=== PATIENT | female | born 1965 | race Caucasian/White ===

== ENCOUNTER 2023-07-17 17:47 | Emergency (ER) | payer MEDICARE, MEDICAID, SELFPAY ==
[2023-07-17 17:48] VITALS: BP 124/86; PULSE 97; RESP 10; TEMP 36.6; O2SAT 97
--- NOTE | 2023-07-17 17:55 | CT_ITS ---
STUDY: CT BRAIN WITHOUT CONTRAST REASON FOR EXAM: Female, 58 years old. Suspect intracranial bleed, on Coumadin RADIATION DOSAGE (If Supplied By Facility): CTDIvol = ( 44.99 ) mGy, DLP = ( 796.11 ) mGycm TECHNIQUE: Transaxial CT imaging of the brain was performed without administration of intravenous contrast material. Individualized dose optimization techniques were used for this CT. COMPARISON: No relevant priors. FINDINGS: Normal soft tissue structures. Normal calvarium. Slightly prominent ventricles and extra-axial spaces with mild atrophy. Mild white matter microangiopathic ischemic changes of the cerebral hemispheres. Normal basal ganglia and thalami. Normal brainstem. Normal cerebellum. There is no intracranial hemorrhage. There are no findings of an acute ischemic infarction. Normal visualized paranasal sinuses. CT/Brain/Head without Contrast IMPRESSION: Age-related changes of the brain. Electronically Signed: Devang Lozada DO at 18:36 EST Reading Location ID and State: [facility] / [place] Tel [phone], Service support ,
[2023-07-17 18:21] LABS: International Normalized Ratio 0.9; Prothrombin Time (Protime)PT. 12.4 SECONDS (11.7-14.9)
--- NOTE | 2023-07-17 18:25 | RAD_ITS ---
INDICATION: Injury/Pain EXAMINATION/TECHNIQUE: X-RAY - XR Hip Unilateral with Pelvis when performed; 2-3 Views COMPARISON: FINDINGS: PELVIC BONES: No displaced fracture, destructive or sclerotic lesions. Note that overlapping bowel shadows may however obscure fine detail. Sacroiliac joints are unremarkable. No widening of the pubic symphysis. HIPS: The articular structures are unremarkable. No displaced fracture seen in this frontal view. SOFT TISSUES: No soft tissue swelling or gas. RAD/HIP, UNI W/ Pelvis 2-3 Views IMPRESSION: No evidence of displaced pelvic or hip fracture. Electronically Signed: Devang Lozada DO at 18:40 EST Reading Location ID and State: [facility] / [place] Tel [phone], Service support ,
[2023-07-17] MEDS: Diphth,Pertuss(Acell),Tet Vac 0.5 ML Vial IM (18:34)
[2023-07-17] MEDS: Lidocaine 1% (20 ml mdv) 20 ML Vial INFILT (18:34)
--- NOTE | 2023-07-17 18:54 | EDS_ITS ---
HPI History of Present Illness Chief Complaint: Fall Detail of Chief Complaint: Scalp wound and left hip pain Informant: patient and spouse/S.O. Onset/Context/Timing Onset: Today and Hours Mechanism/Context: Blunt Injury Location: Left hip and occiput Current Severity: Mild Maximum Severity: Moderate Worsened by: Movement of left lower extremity Relieved by: Remaining still Associated Symptoms Associated Symptoms: Positive for Loss of consciousness; Negative for Parasthesias, Weakness, Loss of function or Amnesia Length of loss of consciousness: Transient Narrative Narrative: Patient is a 58-year-old woman with metastatic squamous cell carcinoma of the lung who presents after fall from wheelchair. She is on anticoagulant. Her port has not been accessed in 4 months. She does report transient loss of conscious. She does report head pain. She denies double vision, blurred vision loss of vision. She denies neck pain. She denies paresthesia, anesthesia or we akness in her upper or lower extremity. She denies chest pain, dyspnea, dyspnea on exertion. She denies cough. She does endorse nausea without vomiting or diarrhea. She denies dysuria, frequency, urgency or hematuria. She localizes her left hip pain to the greater trochanteric region. She denies prior injury to that hip. Tetanus Immunization: Unknown Prior similar symptoms: No Recent Illness/Hospitalization: Yes PFSH PFSH Allergy/AdvReac Type Severity Reaction Status Date / Time loratadine [From Claritin] Allergy Intermediate Other Verified 07/17/23 17:55 Social History (Updated 07/17/23 @ 18:[address] Shabbir Dc MD) household members: family Smoking Status: Former smoker substance use type: does not use ROS ROS ED Constitutional Constitutional ED: Reports weight loss; Denies chills, fever(s), subjective or sweats Eyes Eyes: Denies blurry vision or change in vision ENT ENT ED: Denies ear pain, rhinorrhea or sore throat Cardiovascular Cardiovascular: Denies chest pain, palpitations or paroxysmal nocturnal dyspnea Respiratory/Chest Respiratory/Chest: Denies cough, dyspnea, dyspnea on exertion or paroxysmal nocturnal dyspnea Gastrointestinal Gastrointestinal: Reports nausea; Denies abdominal pain, diarrhea, melena or vomiting Genitourinary Genitourinary ED: Denies dysuria, hematuria or urinary frequency Musculoskeletal Musculoskeletal: Reports other Details: Left hip pain. ; Denies arthralgias, back pain, myalgias or neck pain Integumentary Reports other Details: Scalp laceration occiput with active bleeding Neurologic Neurologic: Reports headache(s) and weakness; Denies paresthesias Psychiatric Psychiatric: Denies anxiety Hematologic/Lymphatic Hematologic/Lymphatic: Reports easy bleeding and easy bruising EXAM Physical Exam Const Vital Signs: 07/17/23 17:48 07/17/23 17:51 Temperature 98 F Temperature Source Temporal Pulse Rate 97 Respiratory Rate 10 L Respiratory Effort Non-Labored Respiratory Depth Normal Respiratory Pattern Normal Blood Pressure 124/86 H Blood Pressure Mean 98 Pulse Ox 97 Oxygen Delivery Method Room Air Room Air Positive well nourished and well developed General Appearance ED: well developed and NAD HEENT HEENT Narrative: There is no occiput hematoma with laceration noted. There is bleeding. There is no palpable depression. There is no clinical findings of basilar skull fracture. trauma and tenderness Eyes PERRL and EOMs intact bilaterally General Eye ED: Yes other Other Details: Sclera is anicteric. Conjunctive is pink. Neck Neck Narrative: There is no midline posterior tenderness. Chest Wall inspection of chest normal and palpation of chest normal Chest Narrative: Port noted right subclavian region. Resp normal respiratory effort and clear to auscultation bilaterally Cardio regular rhythm, S1 normal heart sound, S2 normal heart sound and no murmurs GI normal to inspection, nondistended, normoactive bowel sounds, non-tender, non-distended and no masses Auscultation: normoactive bowel sounds Palpation: soft Back/Spine normal to inspection and no thoracic nor lumbar tenderness Extremity Extremity Narrative: Limited range of motion left lower extremity due to hip pain. Patient is wheelchair-bound. There is tenderness over the greater trochanteric region. General Extremety ED: Yes tenderness; Negative for deformity or edema General Extremity: Negative for deformity or edema Neuro oriented x3, CN's II-XII intact bilaterally, moves all extremities, no focal motor deficits, no sensory deficits noted and No gait normal Bob Coma Scale: document GCS findings Spontaneous Obeys Commands Oriented 15 Sensorium / Orientation: alert Plantar Reflex: Downgoing: bilateral Psych mental status grossly normal and thought process normal Skin no rashes or lesions noted, No no wounds, skin turgor normal and no jaundice Skin Narrative: Scalp laceration with active bleeding 5 mm Wounds: wounds noted PROC Procedures Other Procedures Procedure(s): Patient's wound was cleansed. Wound was not sized wound site lidocaine by local filtration. 1 staple was placed. Bleeding was controlled. MDM MDM MDM Narrative Medical decision making narrative: Per the [place] CT head rule and [place] rule patient needs imaging of her head to rule out subdural, epidural, intraparenchymal bleed. Unlikely traumatic subarachnoid hemorrhage. PT/INR was obtained. Because patient's been bleeding for an hour to will place staple and wound. Tetanus was updated. Patient does have a living will. She states her daughter is her POA. Lab Data Attestation: I reviewed the patient's lab results. Lab results narrative: Patient is subtherapeutic. Labs: Laboratory Results - last 24 hr 07/17/23 18:05 PT 12.4 INR 0.9 Radiography Chest X-Ray - ED: Read by ED Physician (3 view x-ray of the hip reveals no acute process. There is no fracture, dislocation or subluxation. There is no fr acture of the femur or the pelvis.) Diagnostic Testing: Clinical Impression(s) from Imaging Studies Brain CT 07/17/23 17:55 IMPRESSION: Age-related changes of the brain. Electronically Signed: Devang Lozada DO at 18:36 EST , Hip/Pelvis X-Ray 07/17/23 18:25 IMPRESSION: No evidence of displaced pelvic or hip fracture. 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
[2023-07-17 19:00] VITALS: BMI 27.4
[2023-07-17] MEDS: Acetaminophen 325 MG Tablet 650 MG PO (19:36)
[2023-07-17 19:41] VITALS: BP 135/80; PULSE 95; RESP 20; O2SAT 97
== END 2023-07-17 19:46 | disposition home or self-care (01) ==
PROVIDERS: Emergency Provider Emergency Medicine; Visit Provider Emergency Medicine
DX: S01.01XA Laceration without foreign body of scalp, initial encounter (principal); C79.31 Secondary malignant neoplasm of brain; C78.00 Secondary malignant neoplasm of unspecified lung; S06.9X9A Unspecified intracranial injury with loss of consciousness of unspecified duration, initial encounter; S70.02XA Contusion of left hip, initial encounter; M25.552 Pain in left hip; Z87.891 Personal history of nicotine dependence; Z79.01 Long term (current) use of anticoagulants; R51.9 Headache, unspecified; W05.0XXA Fall from non-moving wheelchair, initial encounter; Z99.3 Dependence on wheelchair; Z23 Encounter for immunization
CPT/HCPCS: 12001; 70450; 73502; 85610; 90471; 90715; 99283; A4216

== ENCOUNTER → 2023-10-25 | Outpatient (REF) | payer MEDICARE, SELFPAY ==
[2023-10-25 09:57] LABS: Valproic Acid (Depakene) Level 53 ug/mL (50-100)
[2023-10-29 05:07] LABS: KEPPRA (LEVETIRACETAM) 53.6 ug/mL (10.0-40.0)
== END ==
LOC: OLS.ACW400 05:00
PROVIDERS: Visit Provider Family Medicine
DX: C34.90 Malignant neoplasm of unspecified part of unspecified bronchus or lung (principal); J44.9 Chronic obstructive pulmonary disease, unspecified; F17.210 Nicotine dependence, cigarettes, uncomplicated; F31.9 Bipolar disorder, unspecified
CPT/HCPCS: 36415; 80164; 80177

== ENCOUNTER → 2024-01-22 | Outpatient (REF) | payer MEDICARE, MEDICAID, SELFPAY ==
[2024-01-22 09:40] LABS: Valproic Acid (Depakene) Level < 3 ug/mL (50-100)
[2024-01-24 14:10] LABS: KEPPRA (LEVETIRACETAM) 50.1 ug/mL (10.0-40.0)
== END ==
LOC: OLS.ACW300 06:37
PROVIDERS: Referring Provider Family Medicine; Visit Provider Family Medicine
DX: C34.90 Malignant neoplasm of unspecified part of unspecified bronchus or lung (principal); J44.9 Chronic obstructive pulmonary disease, unspecified; F17.210 Nicotine dependence, cigarettes, uncomplicated; F31.9 Bipolar disorder, unspecified; Z79.899 Other long term (current) drug therapy
CPT/HCPCS: 36415; 80164; 80177